=== PATIENT | female | born 1970 | race Caucasian/White ===

== ENCOUNTER → 2017-11-13 09:08 | Outpatient (CLI) | payer OTHER, SELFPAY ==
[2017-11-18 10:50] LABS: HPV Reflexed? NOT INDICATED
== END ==
PROVIDERS: Visit Provider Obstetrics & Gynecology
DX: Z12.4 Encounter for screening for malignant neoplasm of cervix (principal)
CPT/HCPCS: 88175; G0145

== ENCOUNTER → 2017-12-10 06:56 | Outpatient (CLI) | payer OTHER, SELFPAY ==
--- NOTE | 2017-12-10 07:01 | BI_ITS ---
MAMMOGRAPHY - BILATERAL SCREENING 3-D KEVEN SYNTHESIS REASON FOR EXAM: Female, 47 years old. Bilateral Screening 3-D tomosynthesis PERTINENT HISTORY: Mother with breast cancer.. TECHNIQUE: 2-D mammograms and 3-D Keven synthesis of the breast (s) were performed. CAD was performed. COMPARISON: 12/09/2016, 11/27/2015 FINDINGS: The breast composition is heterogeneously dense that can obscure small breast masses. Scattered benign calcifications are seen. No dense spiculated masses or suspicious microcalcifications are identified. No architectural distortion is identified. There is no skin thickening or retraction. There has been no significant change since the prior study. BI/SCREENING MAMM (CAD), BILAT IMPRESSION: No mammographic signs of malignancy. Routine yearly mammograms recommended. ASSESSMENT CATEGORY: BIRADS Category 2: Benign. A letter regarding these results will be sent to the patient by the facility within 30 days. FOLLOW UP RECOMMENDATION: Yearly follow up mammogram recommended. (A) Approximately 10% of breast cancers are not detected by mammography. A normal mammogram should not delay biopsy of a clinically suspicious abnormality. Electronically Signed: Daniel Alvarado MD at 7:51 EDT , Service support ,
== END ==
PROVIDERS: Visit Provider Obstetrics & Gynecology
DX: Z12.31 Encounter for screening mammogram for malignant neoplasm of breast (principal)
CPT/HCPCS: 77063; 77067

== ENCOUNTER → 2018-11-13 16:12 | Outpatient (CLI) | payer OTHER, SELFPAY ==
[2018-11-13 17:40] LABS: Vitamin D,25 Hydroxy 61.6 ng/mL (29.95-100.01)
[2018-11-13 18:13] LABS: Thyroid Stim Hormone (TSH) 1.94 uIU/mL (0.358-3.74)
[2018-11-20 16:56] LABS: HPV Reflexed? NOT INDICATED
== END ==
PROVIDERS: Visit Provider Obstetrics & Gynecology
DX: Z12.4 Encounter for screening for malignant neoplasm of cervix (principal); R45.86 Emotional lability
CPT/HCPCS: 36415; 82306; 84443; 88175; G0145

== ENCOUNTER → 2018-12-12 08:46 | Outpatient (CLI) | payer OTHER, SELFPAY ==
--- NOTE | 2018-12-12 08:49 | BI_ITS ---
MAMMOGRAPHY - BILATERAL SCREENING REASON FOR EXAM: Female, 48 years old. Routine annual screening examination. PERTINENT HISTORY: Mother with breast cancer. TECHNIQUE: Digital bilateral breast keven (3D mammographic acquisition) in the CC and MLO projections. 2-D mediolateral oblique (MLO) and craniocaudad (CC) views of both breasts were obtained. CAD: Full Field Digital Mammography with Computer Added Detection was performed. COMPARISON: Comparison is made with prior examination dated December 10, 2017 and December 09, 2016. FINDINGS: Breast Composition: The breasts are heterogeneously dense, which may obscure small masses. There are no dominant masses or suspicious calcifications. No other significant abnormalities are identified. There has been no significant change since the prior study. BI/SCREEN MAMM (CAD) W/KEVEN BILAT IMPRESSION: Stable bilateral screening mammogram. Yearly follow-up mammogram recommended. (A) ASSESSMENT CATEGORY: BIRADS Category 1: Negative. A letter regarding these results will be sent to the patient by the facility within 30 days. Approximately 10% of breast cancers are not detected by mammography. A normal mammogram should not delay biopsy of a clinically suspicious abnormality. [id number] Electronically Signed: Adam Tristan, at 8:26 EDT , Service support ,
== END ==
PROVIDERS: Referring Provider Obstetrics & Gynecology; Visit Provider Obstetrics & Gynecology
DX: Z12.31 Encounter for screening mammogram for malignant neoplasm of breast (principal); Z80.3 Family history of malignant neoplasm of breast
CPT/HCPCS: 77063; 77067

== ENCOUNTER 2019-02-10 05:59 | Day surgery (SDC) | payer OTHER, SELFPAY ==
--- NOTE | 2019-02-09 17:57 | HP.PCM_ITS ---
History and Physical Date of Admission: 02/10/19 HISTORY OF PRESENT ILLNESS: On 02/05/2019, Vy Morataya, a 48 year old female 2 0 0 0 2, presented for: -- Pre-Op Vy is being seen for pre op visit. Pt to have D and C hs on 02-10-[address] Knight. Surgery due to polyps but pt is confused because US tech said she had no fibroids or polyps. Medications and allergies are up to date. AM As above. Here for Preop appt. Initially called in to triage on 01/08/19 stating irregular menses. She had a period which was very late, 52 days. She had light spotting then had heavy bleeding that was a tampon and pad within in hour. Had TSH in October that was nl. Ultrasound was recommended and showed thickened irreg lining of uterus. Polyp likely. scheduled for hysteroscopy D and C, and polypectomy She was advised of the ultrasound findings by phone and is confused as not sure what is there if anything. 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 Advised will repeat Sono today. if normal, thin ES will just observe. Advised of planned surgery R,B,A and anticipated preop and operative course. SONO today; (repeat Sono done per patient request) UTERUS: 7.2 x 4.8 x 4.2 cm and is retroverted. ENDOMETRIAL ECHO: 1.2 cm and contains a polyp measuring 2.3 cm. RIGHT OVARY: 2.1 x 1.6 x 1 cm. LEFT OVARY: 2 x 1 x 1 cm. Polyp still present, thickened endometrial stripe. Plan hysteroscopy , D and C and possible polypectomy as planned. EB ALLERGIES: NKA MEDICATIONS HISTORY: Current medications prescribed by our practice are: 1. Valtrex 1 gram tablet, 2 tabs po q 12 hrs x two does prn cold sores Patient is also takin. multivitamin tablet, 1 tab po daily 2. Probiotic 10 billion cell capsule, 1 tab po daily REVIEW OF SYSTEMS: GENERAL - Denies fever, or chills SKIN - Denies skin changes EYES - Denies visual changes EARS - Denies difficulty hearing NOSE - Denies nasal congestion or bleeding MOUTH - Denies sore throat or difficulty swallowing NECK - Denies pain or swelling RESPIRATORY - Denies shortness of breath or wheezing CARDIOVASCULAR - Denies palpitations or chest pain GASTROINTESTINAL - Denies nausea, vomiting, diarrhea, constipation GENITOURINARY - Denies dysuria, frequency of urination, incontinence of urine MUSCULOSKELETAL - Denies joint or muscle pain NEUROLOGICAL - Denies localized numbness or weakness PSYCHIATRIC - Denies depression or anxiety ENDOCRINE - Denies heat or cold intolerance, weight loss or gain HEMATO-IMMUNOLOGIC - Denies excessive bleeding with cuts SURGICAL HISTORY: 1. 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 Hours Worked - 40 hours per week Spouse-Sig Other Name - Abiodun Spouse-Sig Other Occupation - [employer] crew Children Name(s) - '05 Dimple Cristobal (colleen), Bony Gage 08 Control - Vasectomy PHYSICAL EXAMINATION BP- 92/64 Sitting, Right arm, regular cuff Temp- 98.4 Taken Orally Weight- 114.60 lbs Height- 63.00 inch BMI:20.34 CONSTITUTIONAL - NAD, well nourished, and well developed HEENT - Normocephalic, PERRLA, EOMI NECK - no nuchal rigidity NEUROLOGICAL - Cranial nerves II-XII grossly intact PSYCHIATRIC - A and O to time, place, person, mood and affect ASSESSMENT: 1. Endometrial Hyperplasia, Unspecified 2. Excessive Bleeding In The Premenopausal Period PLAN BY DIAGNOSIS: 1. Endometrial Hyperplasia, Unspecified and Excessive Bleeding In The Premenopausal Period Reviewed sono findings and recommendation for surgery to evaluate and treat., Repeat sono again with thickened and vascular appearing endometrial stripe. Discussed anticipated preop, operative and postop recovery including activity restrictions. Plan for surgery as scheduled. Hysteroscopy, D and C, Possible endometrial polypectomy. All questions answered to her satisfaction, consents signed and on chart. The visit was approximately 20 minutes in length with most of the time spent in discussion and counseling.
[2019-02-10] VITALS (7 sets, daily range): BP systolic 98–112; BP diastolic 60–75; PULSE 54–75; RESP 14–16; TEMP 36.2–36.8; O2SAT 95–100; BMI 19.5
[2019-02-10 06:31] LABS: Hematocrit 38.6 % (37-47); Hemoglobin 12.2 g/dL (12.0-15.0); Mean Corp Hgb Conc 31.6 g/dL (32-36); Mean Corpuscular Hgb 26.8 pg (27.0-32.0); Mean Corpuscular Volume 84.8 fL (81-99); Platelet Count 213 K/mm3 (150-450); RBC Distribution Width CV 15.8 % (11.6-14.6); RBC Distribution Width SD 49.1 fl (35.1-43.9); Red Blood Count 4.55 M/mm3 (4.2-5.4); White Blood Count 4.8 K/mm3 (4.4-11.0)
[2019-02-10 06:35] LABS: Internal QC Validated? YES +Cl - CLEAR BKGD; Pregnancy, Urine Negative Negative
[2019-02-10 06:40] LABS: International Normalized Ratio 1.1; Prothrombin Time (Protime)PT. 13.6 SECONDS (11.7-14.9)
[2019-02-10 06:41] LABS: Partial Thromboplast Time 29.6 Seconds (24.1-36.2)
[2019-02-10] MEDS: Lactated Ringers 1,000 ML 150 ML IV (06:53)
--- NOTE | 2019-02-10 07:24 | PCM.DC.D&C ---
Discharge Diet: No Restrictions Discharge Activity: May Shower, May Take a Tub Bath Return to work on:: 02/11/19 May resume sexual activity in: 1 week - when bleeding stops Call your doctor if you observe: Fever of 101 or Higher, Uncontrolled pain Additional Instructions: Take Aleve or Ibuprofen for pain as needed You may also add Tylenol 1-2 tabs by mouth every 6 hr for pain. Resume all activity as tolerated the day after surgery. Allergies/Adverse Reactions: Allergies No Known Allergies Allergy (Verified 02/04/19 14:21) Medications to take at Discharge Doxycycline Monohydrate [Oracea] 40 mg PO PRN PRN 05/04/13 Multivitamins,Ther W-Minerals [Multivitamin With Minerals] 1 tablet PO DAILY 05/04/13 Cholecalciferol (Vitamin D3) [Vitamin D3] 2,000 unit PO DAILY 02/04/19 L.acidoph,Paracasei, B.lactis [Probiotic] 1 ea PO DAILY 02/04/19 [place]ado-3 Fatty Acids/Fish Oil [Fish Oil 1,000 mg Capsule] 1 ea PO DAILY 02/04/19 Vitamin B Complex 1 ea PO DAILY 02/04/19 Primary Care Physician: Care Physician,No Primary [Primary Care Provider] - Test Results: Test results from this visit will be discussed in further detail at your follow-up appointment, if applicable. Please Follow Up With: Marily Knight MD - [phone] When: 2 wk for postop follow up appointment Proposed Discharge Date: 02/10/19
--- NOTE | 2019-02-10 07:30 | EMB_PTH ---
PATIENT: JARED REED LOC: [facility] – [place] U#:[id number] AGE/SX: 48/F ROOM: RE02/10/[address]: Dr. Marily Knight MD : 1970 BED: DIS: 02/10/2019 SPEC #: [id number] RECD: 02/10/19 14:09 STATUS: ADILIA LADI #: [id number] SHLOMO: 02/10/19 07:[address]: Marily Knight DEPT: SURGICAL PATHOLOGY RECD BY: Carter Russo ENTERED: 02/10/19 14:31 SP TYPE: ENDOM BX/C JERRY DR: No Primary Care Phys Tissues: Endometrium, NOS Procedures: Surgery Specimen Level IV HEADER OPERATION: Hysteroscopy, D & C Symphion PRE-OP DIAGNOSIS: Endometrial hyperplasia, excessive bleeding in premenopausal period TISSUE SUBMITTED: Endometrial curettings MICROSCOPIC DIAGNOSIS Endometrial curettings: Disordered proliferative endometrium. Fragments of myometrium with changes consistent with adenomyosis. See comment. HCRIS:radha 02/11/19 COMMENT Correlation with clinical findings and appropriate follow up are necessary. Case has been reviewed in consultation with Dr. Garcia who concurs with the above diagnosis. IDC:AM MICROSCOPIC DESCRIPTION Slides are reviewed. GROSS DESCRIPTION Received in fixative is one container labeled with the patient's name and designated endometrial curettings. The specimen consists of multiple irregular fragments of ordaz soft tissue that in aggregate measure 7.5 x 3 x 0.3 cm. The entire specimen is submitted in three cassettes. / CHRIS:radha 02/10/19 TC:5 CPT: 23406
--- NOTE | 2019-02-10 08:21 | PCM.OPRPT ---
Report of Operation Date of Procedure: 02/10/19 Pre-Operative Diagnosis: thickened endometrial stripe. Excessive bleeding in premenopause Post-Operative Diagnosis: same. Endometrial polyp. atrophic appearing endometrium Surgery/Procedure Performed:: Hysteroscopy D and C Symphion assisted polypectomy Type of Anesthesia:: Local MAC Anesthesiologist: Maki Pleitez CRNA Special Medications: Toradol Specimen's removed: endometrial curettings, endometrial polyp Drains: Cesar Norton Estimated Blood Loss (mL): 20 Fluids Replaced: LR Description of Procedure: Findings: RV uterus, 8 cm cavity length. Large endometrial polyp filling cavity. After polypectomy: Normal atrophic appearing endometrium. Tubal ostia visualized bilaterally. Narrative account After the R,B,Alternatives of the procedure were reviewed with the patient and her , informed consent was obtained. The patient was taken to the operating room with an IV running and placed in dorsal supine position of the operating table. She was given MAC IV sedation and repositioned to the dorsal lithotomy position and prepped and draped in the usual sterile fashion. A small graves speculum was placed into the vagina and the cervix was brought into view. The cervix sequentially dilated. A single toothed tenaculum was applied to the posterior of the cervix. The cervix was instilled with 10 cc of 1% lidocaine as a paracervical block using a 20 G spinal needle. The cervix was then probed and dilated to allow admission of the hysteroscope into the endometrial cavity. The hysteroscopy was performed with findings noted as above. There was an endometrial polyp noted. A polypectomy was performed with the Symphion resectoscope. At the completion of the procedure, the endometrial cavity was normal appearing and both tubal ostia were visualized. Excellent hemostasis was noted. The single toothed tenaculum was removed from the cervix and a RayTec was used to remove any remaining tissue and blood from the upper vagina and cervix. The procedure was terminated. The speculum was removed. The patient was returned to dorsal supine position and awakened from IV sedation and transferred to her recovery room bed in stable condition after tolerating the procedure well. Sponge, lap, needle and instrument counts were correct x two. medications given intraoperatively included 10 cc of 1% lidocaine without epinephrine instilled as a paracervical block. Vy also received a dose of Toradol 30 mg IV times one. For a complete listing of the medications given intraoperatively, see the anesthesia record.
== END 2019-02-10 09:33 | disposition home or self-care (01) ==
LOC: SDC 06:00 → AC 06:01
PROVIDERS: Anesthesiology; Referring Provider Obstetrics & Gynecology; Visit Provider Obstetrics & Gynecology
PROC: 0UB98ZZ Excision of Uterus, Via Natural or Artificial Opening Endoscopic (ICD-10-PCS; CPT 58558; principal; 2019-02-10 07:15)
DX: N84.0 Polyp of corpus uteri (principal); N92.4 Excessive bleeding in the premenopausal period; R93.89 Abnormal findings on diagnostic imaging of other specified body structures
CPT/HCPCS: 58558; 36415; 81025; 85027; 85610; 85730; 86850; 86900; 86901; 88305; J7120; J2405

== ENCOUNTER → 2019-11-17 | Outpatient (CLI) | payer OTHER, SELFPAY ==
[2019-02-10 06:46] VITALS: BMI 19.5
[2019-11-23 15:40] LABS: HPV Reflexed? NOT INDICATED
== END | disposition home or self-care (01) ==
LOC: LABSPEC 13:53
PROVIDERS: Visit Provider Obstetrics & Gynecology
DX: Z12.4 Encounter for screening for malignant neoplasm of cervix (principal)
CPT/HCPCS: 88175; G0145

== ENCOUNTER → 2019-12-14 07:24 | Outpatient (CLI) | payer OTHER, SELFPAY ==
[2019-02-10 06:46] VITALS: BMI 19.5
--- NOTE | 2019-12-14 07:27 | BI_ITS ---
MAMMOGRAPHY - BILATERAL SCREENING REASON FOR EXAM: Female, 49 years old. Routine annual screening examination. PERTINENT HISTORY: Mother with breast cancer. TECHNIQUE: Digital bilateral breast keven (3D mammographic acquisition) in the CC and MLO projections. 2-D mediolateral oblique (MLO) and craniocaudad (CC) views of both breasts were obtained. CAD: Full Field Digital Mammography with Computer Added Detection was performed. COMPARISON: Comparison is made with prior examination dated 12-12-18 and 12-10-17. FINDINGS: Breast Composition: The breasts are extremely dense, which lowers the sensitivity of mammography. There are no dominant masses or suspicious calcifications. No other significant abnormalities are identified. There has been no significant change since the prior study. BI/SCREEN MAMM (CAD) W/KEVEN BILAT IMPRESSION: Stable bilateral screening mammogram. Yearly follow-up mammogram recommended. (A) ASSESSMENT CATEGORY: BIRADS Category 1: Negative. A letter regarding these results will be sent to the patient by the facility within 30 days. Approximately 10% of breast cancers are not detected by mammography. A normal mammogram should not delay biopsy of a clinically suspicious abnormality. [id number] Electronically Signed: Adam Tristan, at 8:44 EDT , Service support ,
== END ==
PROVIDERS: Referring Provider Obstetrics & Gynecology; Visit Provider Obstetrics & Gynecology
DX: Z12.31 Encounter for screening mammogram for malignant neoplasm of breast (principal); Z80.3 Family history of malignant neoplasm of breast
CPT/HCPCS: 77063; 77067

== ENCOUNTER → 2021-01-08 | Outpatient (CLI) | payer OTHER, SELFPAY ==
[2021-01-11 10:28] LABS: HPV Reflexed? NOT INDICATED
== END | disposition home or self-care (01) ==
LOC: LABSPEC 16:55
PROVIDERS: Visit Provider Obstetrics & Gynecology
DX: Z12.4 Encounter for screening for malignant neoplasm of cervix (principal)
CPT/HCPCS: 88175; G0145

== ENCOUNTER 2021-05-22 17:00 | Outpatient (CLI) | payer OTHER, SELFPAY ==
--- NOTE | 2021-05-22 16:37 | BI_ITS ---
MAMMOGRAPHY - BILATERAL SCREENING REASON FOR EXAM: Female, 50 years old. Routine annual screening examination. PERTINENT HISTORY: Mother with breast cancer. TECHNIQUE: Digital bilateral breast keven (3D mammographic acquisition) in the CC and MLO projections. 2-D mediolateral oblique (MLO) and craniocaudad (CC) views of both breasts were obtained. CAD: Full Field Digital Mammography with Computer Added Detection was performed. COMPARISON: Comparison is made with prior study dated 12/14/2019 and 12/12/2018. FINDINGS: Breast Composition: The breasts are extremely dense, which lowers the sensitivity of mammography. There are no dominant masses or suspicious calcifications. No other significant abnormalities are identified. There has been no significant change since the prior study. BI/SCRN MAMM (CAD)W/KEVEN BILAT IMPRESSION: Stable bilateral screening mammogram. Yearly follow-up mammogram recommended. (A) ASSESSMENT CATEGORY: BIRADS Category 1: Negative. A letter regarding these results will be sent to the patient by the facility within 30 days. Approximately 10% of breast cancers are not detected by mammography. A normal mammogram should not delay biopsy of a clinically suspicious abnormality. [id number] Electronically Signed: Adam Tristan MD at 8:44 EST , Service support ,
== END 2021-05-22 23:59 | disposition short-term general hospital (02) ==
LOC: OPBI 05-23 07:18
PROVIDERS: Referring Provider Obstetrics & Gynecology; Visit Provider Obstetrics & Gynecology
DX: Z12.31 Encounter for screening mammogram for malignant neoplasm of breast (principal); Z80.3 Family history of malignant neoplasm of breast
CPT/HCPCS: 77063; 77067

== ENCOUNTER → 2022-06-07 | Outpatient (CLI) | payer OTHER, SELFPAY ==
[2022-06-12 16:24] LABS: HPV APTIMA, High Risk Negative (Negative)
== END | disposition home or self-care (01) ==
LOC: LABSPEC 15:43
PROVIDERS: Visit Provider Student in an Organized Health Care Education/Training Program
DX: Z12.4 Encounter for screening for malignant neoplasm of cervix (principal)
CPT/HCPCS: 87624; 88175; G0145

== ENCOUNTER 2024-09-28 11:42 | Outpatient (CLI) | payer OTHER, SELFPAY ==
[2024-09-28 16:56] LABS: Vitamin D,25 Hydroxy 44.6 ng/mL (30-100)
== END 2024-09-28 23:59 | disposition home or self-care (01) ==
PROVIDERS: Referring Provider Advanced Practice Midwife; Visit Provider Advanced Practice Midwife
DX: N95.1 Menopausal and female climacteric states (principal); Z13.21 Encounter for screening for nutritional disorder; R23.2 Flushing; R41.840 Attention and concentration deficit; R68.89 Other general symptoms and signs
CPT/HCPCS: 36415; 82306; 84443